=== PATIENT | female | born 2000 | race African-American/Black ===

== ENCOUNTER 2022-08-12 06:47 | Emergency (ER) | payer MEDICAID ==
[~2022-08-12] VITALS: Ht 162.6 cm; Wt 77.2 kg
[2022-08-12] MEDS ORDERED: HYDROmorphone HCL 2 MG/ML VL/or syr IM ONE (11:00)
[2022-08-12 11:44] VITALS: BP 105/62
[2022-08-12] MEDS ORDERED: CEPH-510 PO (11:44)
[2022-08-12] MEDS ORDERED: HYDR-4902 PO (11:44)
== END 2022-08-12 11:46 | disposition home or self-care (01) ==
LOC: ER 06:47
DX: L02.31 Cutaneous abscess of buttock (principal)
CPT/HCPCS: 96372; 99285; J1170